=== PATIENT | male | born 1990 | race Caucasian/White ===

== ENCOUNTER 2019-11-13 12:52 | Outpatient (CLI) | payer OTHER, SELFPAY ==
--- NOTE | ~2019-11-13 | US_ITS ---
EXAMINATION: US soft tissue UE LT DATE: 11/13/2019 13:20 INDICATION: Bursal cyst at the left wrist TECHNIQUE: Multiple grayscale and Doppler ultrasound images of the medial aspect of the left wrist we re obtained. COMPARISON: None FINDINGS/IMPRESSION: Normal appearance to the muscles, tendons and vessels at the region of concern. No abnormal masses or fluid collections identified. Reviewed, dictated and finalized at location A. TER DECORATOR
== END 2019-11-13 12:53 | disposition home or self-care (01) ==
LOC: CHSIMG 12:54
PROVIDERS: Visit Provider Nurse Practitioner Family
DX: M71.30 Other bursal cyst, unspecified site (principal)
CPT/HCPCS: 76882